=== PATIENT | male | born 1950 | race Caucasian/White ===

== ENCOUNTER 2017-04-23 20:05 | Emergency (ER) | payer OTHER, MEDICARE ==
--- NOTE | 2017-04-23 23:37 | ER Document Report ---
HPI - HPI Patient complains to provider of: Head injury Pain Level: 1 Context: He is not on blood thinners patient is a 66-year-old male presents emergency department complaining of a cut on the top of his head 3 days ago. 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 Denies any loss of consciousness, headache, dizziness or confusion, nausea or vomiting. His primary reason for presentation today is that the cut on his head is not 100% healed. He states he has been continually touching and picking at it. - DERM Skin Color: Normal Past Medical History - Social History Smoking Status: Current Every Day Smoker Family History: Reviewed & Not Pertinent Patient has suicidal ideation: No Patient has homicidal ideation: No - Past Medical History Cardiac Medical History: Reports: Hx Hypertension Renal/ Medical History: Denies: Hx Peritoneal Dialysis Past Surgical History: Reports: Hx Cholecystectomy - Immunizations Hx Diphtheria, Pertussis, Tetanus Vaccination: Yes Vertical Provider Document - CONSTITUTIONAL Agree With Documented VS: Yes Exam Limitations: No Limitations General Appearance: WD/WN, No Apparent Distress - INFECTION CONTROL TRAVEL OUTSIDE OF THE [place] IN LAST 30 DAYS: No - HEENT HEENT: Atraumatic, Normal ENT Exam, Normocephalic. negative: Conjuctival Injection, Dental Injury, PERRLA, Pharyngeal Exudate, Pharyngeal Tenderness, Pharyngeal Erythema, Tympanic Membrane Red, Tympanic Membrane Bulging - NECK Neck: Normal Inspection, Supple, Other - Normal range of motion no cervical spinous tenderness. negative: Lymphadenopathy-Left, Lymphadenopathy-Right - RESPIRATORY O2 Sat by Pulse Oximetry: 95 - DERM Integumentary: Laceration - Evidence of a superficial half centimeter laceration on the scalp without any evidence of induration, erythema, tenderness or drainage. Course - Re-evaluation Re-evalutation: 04/24/17 23:37 Patient is a 66-year-old male is hemodynamic stable, no acute distress and afebrile. Wound is healing well without any difficulty or signs of infection. At this time educated patient on nonsutured wound care and signs and symptoms to be aware of indicating return to the emergency department. Patient agrees with plan - Vital Signs Vital signs: Temp Pulse Resp BP Pulse Ox 97.6 F 84 18 128/74 H 95 04/23/17 20:53 04/23/17 20:53 04/23/17 20:53 04/23/17 20:53 04/23/17 20:53 Discharge - Discharge Clinical Impression: Laceration Condition: Good Disposition: HOME, SELF-CARE Instructions: Antibiotic Ointment Protection ([facility]), Non-Sutured Laceration ([facility] ), Soap Cleansing ([facility])
[2017-04-23 23:59] VITALS: BP 127/70
== END 2017-04-23 23:59 | disposition home or self-care (01) ==
LOC: ER 20:05
DX: S01.01XA Laceration without foreign body of scalp, initial encounter (principal); W20.8XXA Other cause of strike by thrown, projected or falling object, initial encounter; Y93.H3 Activity, building and construction; Y99.0 Civilian activity done for income or pay; F17.200 Nicotine dependence, unspecified, uncomplicated; Z90.49 Acquired absence of other specified parts of digestive tract
CPT/HCPCS: 99282

== ENCOUNTER 2018-04-12 12:23 | Emergency (ER) | payer OTHER, MEDICARE ==
[2018-04-12] MEDS ORDERED: ASPIRIN 81 MG TABLET, CHEWABLE PO ONE (12:29)
[2018-04-12] MEDS ORDERED: NORMAL SALINE 1000 ML 1,000 ML IV ONE (12:30)
[2018-04-12] MEDS: NORMAL SALINE 1000 ML 1,000 ML IV PRN ×2 (12:37→12:38)
[2018-04-12 12:41] LABS: ABSOLUTE BASOPHILS # (AUTO) 0.1 10^3/uL (0.0-0.2); ABSOLUTE EOSINOPHILS # (AUTO) 0.1 10^3/uL (0.0-0.6); ABSOLUTE LYMPHOCYTES (AUTO) 1.8 10^3/uL (0.5-4.7); ABSOLUTE MONOCYTES (AUTO) 0.9 10^3/uL (0.1-1.4); ABSOLUTE NEUT (AUTO) 7.2 10^3/uL (1.7-8.2); BASOPHILS % (AUTO) 0.6 % (0-2); EOSINOPHILS % (AUTO) 1.2 % (0-6); HEMATOCRIT 42.7 % (37.9-51.0); HEMOGLOBIN 14.5 g/dL (13.5-17.0); LYMPHOCYTES % (AUTO) 17.4 % (13-45); MEAN CORPUSCULAR HEMOGLOBIN 30.7 pg (27.0-33.4); MEAN CORPUSCULAR HGB CONC 33.9 g/dL (32.0-36.0); MEAN CORPUSCULAR VOLUME 90 fl (80-97); MONOCYTES % (AUTO) 9.1 % (3-13); PLATELET COUNT 248 10^3/uL (150-450); RED BLOOD COUNT 4.73 10^6/uL (4.35-5.55); RED CELL DISTRIBUTION WIDTH 13.3 % (11.5-14.0); SEGMENTED NEUTROPHILS % (AUTO) 71.7 % (42-78); TOTAL CELLS COUNTED % (AUTO) 100 %; WHITE BLOOD COUNT 10.1 10^3/uL (4.0-10.5)
[2018-04-12 12:43] LABS: INTERNATIONAL RATION (INR) 1.03
[2018-04-12 13:02] LABS: ALANINE AMINOTRANSFERASE 39 U/L (21-72); ALKALINE PHOSPHATASE 43 U/L (38-126); ANION GAP 10 (5-19); ASPARTATE AMINO TRANSFERASE 36 U/L (17-59); BILIRUBIN,DIRECT 0.5 mg/dL (0.0-0.4); BILIRUBIN,TOTAL 1.3 mg/dL (0.2-1.3); BLOOD UREA NITROGEN 27 mg/dL (7-20); CALCIUM 9.7 mg/dL (8.4-10.2); CARBON DIOXIDE 23 mmol/L (22-30); CHLORIDE 106 mmol/L (98-107); CREATINE KINASE 252 U/L (55-170); GLUCOSE 125 mg/dL (75-110); LIPASE 389.4 U/L (23-300); POTASSIUM 5.5 mmol/L (3.6-5.0); SODIUM 139.3 mmol/L (137-145); TOTAL PROTEIN 6.8 g/dL (6.3-8.2)
--- NOTE | 2018-04-12 13:02 | RADIOLOGY REPORT (SQ) ---
EXAM DESCRIPTION: CHEST SINGLE VIEW COMPLETED DATE/TIME: 04/12/2018 12:54 pm REASON FOR STUDY: syncope COMPARISON: 09/05/2015. EXAM PARAMETERS: NUMBER OF VIEWS: One view. TECHNIQUE: Single frontal radiographic view of the chest acquired. RADIATION DOSE: NA LIMITATIONS: None. FINDINGS: LUNGS AND PLEURA: No opacities, masses or pneumothorax. No pleural effusion. MEDIASTINUM AND HILAR STRUCTURES: No masses. Contour normal. HEART AND VASCULAR STRUCTURES: Heart normal in size. Normal vasculature. BONES: No acute findings. HARDWARE: None in the chest. OTHER: No other significant finding. IMPRESSION: NO ACUTE RADIOGRAPHIC FINDING IN THE CHEST. TECHNICAL DOCUMENTATION: JOB ID: [id number] [employer]- All Rights Reserved Reading location - IP/workstation name: [email or web address]
[2018-04-12 13:12] LABS: CREATINE KINASE MB 4.84 ng/mL (<4.55)
[2018-04-12 13:18] LABS: TROPONIN I < 0.012 ng/mL
[2018-04-12 16:46] LABS: ANION GAP 7 (5-19); BLOOD UREA NITROGEN 25 mg/dL (7-20); CARBON DIOXIDE 26 mmol/L (22-30); CHLORIDE 107 mmol/L (98-107); GLUCOSE 116 mg/dL (75-110); POTASSIUM 4.7 mmol/L (3.6-5.0); SODIUM 140.1 mmol/L (137-145)
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
[2018-04-12 18:39] VITALS: BP 110/67
--- NOTE | 2018-04-13 15:32 | EKG REPORT ---
SEVERITY:- NORMAL ECG - SINUS RHYTHM : Confirmed by: Cynthia Lara MD 13-Apr-2018 15:31:24
--- NOTE | 2018-04-13 15:32 | EKG REPORT ---
SEVERITY:- NORMAL ECG - SINUS RHYTHM : Confirmed by: Cynthia Lara MD 13-Apr-2018 15:31:29
== END 2018-04-12 18:38 | disposition home or self-care (01) ==
LOC: ER 12:23
DX: R55 Syncope and collapse (principal); I95.9 Hypotension, unspecified; E86.0 Dehydration; T67.9XXA Effect of heat and light, unspecified, initial encounter; X37.0XXA Hurricane, initial encounter; Z87.891 Personal history of nicotine dependence
CPT/HCPCS: 36415; 71045; 80048; 80053; 82550; 82553; 83690; 83735; 84484; 85025; 85610; 93005; 93010; 96360; 99291

== ENCOUNTER 2020-01-10 23:53 | Emergency (ER) | payer OTHER, MEDICARE ==
[2020-01-11] MEDS ORDERED: ACETAMINOPHEN 325 MG TABLET PO ONE (00:40)
--- NOTE | 2020-01-11 00:42 | ER Document Report ---
ED Medical Screen (RME) - General Stated Complaint: RIGHT HAND INJURY Time Seen by Provider: 01/11/20 00:38 Primary Care Provider: AUSTEN HEIN MD [Primary Care Provider] - Follow up as needed Mode of Arrival: Ambulatory Information source: Patient Notes: HPI; 69-year-old male presents to the emergency room complaining of right hand pain and swelling. States he was trying to kill a flight and hit his hand on the table multiple times. Patient is right-handed. Drove self to ER. No meds for pain prior to arrival PE: Alert and oriented x3. Mild distress noted. Ecchymosis, swelling, tenderness on palpation noted to the right hand lateral aspect. Positive right radial pulse. Capillary refill less than 3 seconds. I have greeted and performed a rapid initial assessment of this patient. A comprehensive ED assessment and evaluation of the patient, analysis of test results and completion of the medical decision making process will be conducted by additional ED providers. I have specifically instructed the patient or family members with the patient to immediately return to any nursing staff should anything change in the patient's condition or with their chief complaint. TRAVEL OUTSIDE OF THE [place] IN LAST 30 DAYS: No - Related Data Allergies/Adverse Reactions: No Known Allergies Allergy (Unverified 08/14/11 11:11) Past Medical History - Past Medical History Cardiac Medical History: Reports: Hx Hypertension Renal/ Medical History: Denies: Hx Peritoneal Dialysis Past Surgical History: Reports: Hx Cholecystectomy - Immunizations Hx Diphtheria, Pertussis, Tetanus Vaccination: Yes Physical Exam - Vital signs Vitals: Temp Pulse Resp BP Pulse Ox 97.6 F 83 16 159/78 H 97 01/11/20 00:00 01/11/20 00:00 01/11/20 00:00 01/11/20 00:00 01/11/20 00:00 Course - Vital Signs Vital signs: Temp Pulse Resp BP Pulse Ox 97.6 F 83 16 159/78 H 97 01/11/20 00:00 01/11/20 00:00 01/11/20 00:00 01/11/20 00:00 01/11/20 00:00 Doctor's Discharge - Discharge Referrals: AUSTEN HEIN MD [Primary Care Provider] - Follow up as needed
--- NOTE | 2020-01-11 01:25 | ER Document Report ---
ED General - General Chief Complaint: Hand Injury Stated Complaint: RIGHT HAND INJURY Time Seen by Provider: 01/11/20 00:38 Primary Care Provider: AJ YORK MD [ACTIVE STAFF] - Follow up in 3-5 days AUSTEN HEIN MD [Primary Care Provider] - Follow up as needed Mode of Arrival: Ambulatory Notes: 69-year-old male who hit his right hand against a desk while trying to kill a fly and then developed pain on the ulnar aspect of his right hand. Denies numbness or tingling, denies difficulty bending his fifth digit but does complain of pain. TRAVEL OUTSIDE OF THE [place] IN LAST 30 DAYS: No - Related Data Allergies/Adverse Reactions: No Known Allergies Allergy (Unverified 08/14/11 11:11) Home Medications: fish oil, arthritis. Past Medical History - General Information source: Patient - Social History Smoking Status: Former Smoker Frequency of alcohol use: None Drug Abuse: None Family History: Reviewed & Not Pertinent Patient has homicidal ideation: No - Past Medical History Cardiac Medical History: Reports: Hx Hypertension Renal/ Medical History: Denies: Hx Peritoneal Dialysis Past Surgical History: Reports: Hx Cholecystectomy - Immunizations Hx Diphtheria, Pertussis, Tetanus Vaccination: Yes Review of Systems - Review of Systems Constitutional: No symptoms reported Musculoskeletal: See HPI Skin: Change in color - Bruising on the ulnar aspect of the right hand. Hematologic/Lymphatic: No symptoms reported Neurological/Psychological: No symptoms reported. denies: Numbness, Tingling Physical Exam - Vital signs Vitals: Temp Pulse Resp BP Pulse Ox 97.6 F 83 16 159/78 H 97 01/11/20 00:00 01/11/20 00:00 01/11/20 00:00 01/11/20 00:00 01/11/20 00:00 Interpretation: Hypertensive - Notes Notes: GENERAL: Alert, interacts well. No acute distress. HEAD: Normocephalic, atraumatic EYES: Pupils equal, round, extraocular movements intact. ENT: Oral mucosa moist, tongue midline. NECK: trachea midline. LUNGS: no respiratory distress. EXTREMITIES: Area over the fifth metacarpal is swollen around the midshaft, tender to palpation, right fifth MCP joint is slightly sunken compared to the rest. radial pulses 2/4 bilaterally. No cyanosis. Capillary refill 2 seconds to the right fifth finger. NEUROLOGICAL: Alert, normal speech, ambulates without difficulty, able to fully flex and extend his right hand and all the fingers on his right hand, no difficulty with range of motion at the wrist. Sensation intact to the right hand. PSYCH: Normal mood, normal affect. SKIN: Warm, Dry, no break in skin. Course - Re-evaluation Re-evalutation: 01/11/20 01:32 X-ray shows mildly displaced fracture of the right fifth metacarpal, will be placed in ulnar gutter splint. - Vital Signs Vital signs: Temp Pulse Resp BP Pulse Ox 97.6 F 83 16 159/78 H 97 01/11/20 00:39 01/11/20 00:00 01/11/20 00:00 01/11/20 00:00 01/11/20 00:00 Procedures - Immobilization Right Hand Pre-Proc Neuro Vasc Exam: Normal Immobilizer type: Ulnar Performed by: Provider, PCT Post-Proc Neuro Vasc Exam: Normal, Unchanged from pre-exam Alignment checked and good: Yes - Declined x-ray Notes: 01/11/20 01:43 Patient declined a repeat x-ray. After immobilization and pressure to gently reduce his fifth digit does align slightly better with his other digits. Discharge - Discharge Clinical Impression: Boxer's fracture Qualifiers: Encounter type: initial encounter Fracture type: closed Qualified Code(s): S62.339A - Displaced fracture of neck of unspecified metacarpal bone, initial encounter for closed fracture Closed fracture of metacarpal of right hand Qualifiers: Encounter type: initial encounter Metacarpal bone: fifth Metacarpal location: shaft Fracture alignment: displaced Qualified Code(s): S62.326A - Displaced fracture of shaft of fifth metacarpal bone, right hand, initial encounter for closed fracture Condition: Stable Disposition: HOME, SELF-CARE Additional Instructions: Fractured Fifth Metacarpal (Boxer's) You have a fracture of the fifth metacarpal bone in the hand, often called a Boxer's Fracture. The fracture is usually caused by striking the knuckle against a hard surface -- such as hitting a wall with the fist. This fracture heals well. Some degree of angle in the fracture is perfectly acceptable, resulting in only a slightly rounder knuckle. Your physician has determined whether your fracture could benefit from "setting", and has outlined a treatment plan for you. The usual treatment is splinting for four to six weeks -- a cast is not usually necessary. At first, the injury should be elevated and ice packed. Contact the doctor at once if swelling or pain becomes severe, or if numbness develops. Referrals: AUSTEN HEIN MD [Primary Care Provider] - Follow up as needed AJ YORK MD [ACTIVE STAFF] - Follow up in 3-5 days
--- NOTE | 2020-01-11 01:26 | RADIOLOGY REPORT (SQ) ---
EXAM DESCRIPTION: XR HAND 3 OR MORE VIEWS COMPLETED DATE/TME: 01/11/2020 00:40 CLINICAL HISTORY: 69 years, Male, injury COMPARISON: None. NUMBER OF VIEWS: TECHNIQUE: LIMITATIONS: None. FINDINGS: 3 views of the right hand were obtained. There is fracture of the mid fifth metacarpal, with some lateral and volar angulation. There are degenerative changes involving the first carpometacarpal joint, as well as the interphalangeal joint of the thumb. Mineralization of bone appears normal. IMPRESSION: Fracture of the fifth metacarpal. Degenerative changes. copyright 2010 [employer]- All Rights Reserved
[2020-01-11] MEDS ORDERED: HYDROCODONE/ACETAMINOPHEN 5-325 MG (6 TAB/ER DISP) PO PRN (01:36)
[2020-01-11 01:46] VITALS: BP 148/90
== END 2020-01-11 02:05 | disposition home or self-care (01) ==
LOC: ER 23:53
DX: S62.326A Displaced fracture of shaft of fifth metacarpal bone, right hand, initial encounter for closed fracture (principal); S62.339A Displaced fracture of neck of unspecified metacarpal bone, initial encounter for closed fracture; W22.03XA Walked into furniture, initial encounter; Y93.89 Activity, other specified; I10 Essential (primary) hypertension; Z79.899 Other long term (current) drug therapy; Z87.891 Personal history of nicotine dependence
CPT/HCPCS: 99283